=== PATIENT | female | born 1980 | race American Indian/Alaskan Native ===

== ENCOUNTER 2021-04-24 12:26 | Emergency (ER) | payer OTHER, SELFPAY ==
[2021-04-24] MEDS ORDERED: diphenhydrAMINE 50 MG/ML VIAL IM NR (14:00)
[2021-04-24] MEDS ORDERED: HALOPERIDOL LACTATE 5 MG/1 ML INJ IM NR (14:00)
[2021-04-24 14:04] LABS: Amphetamine Screen,Urine Negative; Bacteria,Urine 2+ /HPF (Negative); Benzodiazepines Screen,Urine Negative; Bilirubin,Urine NEG (Negative); Blood,Urine NEG (Negative); Cocaine Screen,Urine Negative; Color,Urine Straw (Yellow); Hyaline Casts,Urine 1 /LPF; Methadone Screen,Urine Negative; Mucus,Urine FEW /HPF; Opiate Screen,Urine Negative; Protein,Urine <15 mg/dL mg/dL (Negative); Urobilinogen,Urine < 2.0 mg/dL (<2.0)
--- NOTE | 2021-04-24 14:46 | Emergency Department Report ---
HPI - General Chief Complaint: Psych Time Seen by Provider: 04/24/21 13:05 - HPI HPI: 40-year-old female with history of bipolar disorder and schizophrenia as well as hypertension brought in by EMS after she told her family member that she wanted to kill her self. The patient states that "my mind is racing" she reports that she ran out of all of her medications 1 month ago. Since then she has been having blackouts and will regain awareness and finds herself naked in various places or doing other risky behaviors. She does not specify. She also reports "people are trying to hurt me". To me she denies suicidal ideation or homicidal ideation and says that she only told this to her family member earlier in anger. The patient reports that her LMP was 1 month ago. She denies any physical symptoms or complaints whatsoever. ED Past Medical Hx - Past Medical History Previous Medical History?: Yes Hx Psychiatric Treatment: Yes (Schizophrenia) - Medications Home Medications: Home Medications Medication Instructions Recorded Confirmed Last Taken Type QUEtiapine [SEROquel] 100 mg PO BID #60 tab 04/25/21 Unknown Rx Sertraline [Zoloft] 25 mg PO QDAY #30 tab 04/25/21 Unknown Rx cephALEXin [Keflex] 500 mg PO Q12HR #12 cap 04/25/21 Unknown Rx ED Review of Systems ROS: Stated complaint: SI/HI/DEPRESSION Other details as noted in HPI Constitutional: denies: chills, fever Eyes: denies: eye pain, vision change ENT: denies: throat pain, congestion Respiratory: denies: cough Cardiovascular: denies: chest pain, palpitations Gastrointestinal: denies: abdominal pain, nausea, vomiting Genitourinary: denies: dysuria, frequency Musculoskeletal: denies: back pain, joint swelling Skin: denies: rash Neurological: denies: headache, weakness, numbness Psychiatric: depression. denies: auditory hallucinations, visual hallucinations, homicidal thoughts, suicidal thoughts Physical Exam - Physical Exam Physical Exam: GENERAL: Well developed and well nourished. No acute distress HEENT: Normocephalic. No obvious signs of trauma. Moist mucous membranes. EYES: Extraocular movements are intact. Pupils are equal round and reactive to light bilaterally NECK: Supple. Trachea is midline. LUNGS: Nonlabored breathing. Equal chest rise bilaterally. Clear to auscultation bilaterally. HEART/CARDIOVASCULAR: Regular rate and rhythm. No murmurs or rubs. VASCULAR: Cap refill < 2 seconds ABDOMEN: Abdomen is soft and nondistended. There is no significant tenderness, guarding or rebound. SKIN: Skin is warm and dry NEURO: Patient is awake, alert, and oriented. embroiderer hand II-XII grossly intact. No focal deficits. Normal motor and sensory exam throughout. Normal speech. Normal gait. MUSCULOSKELETAL: No obvious deformities. No significant tenderness. Normal ROM throughout. . ED Medical Decision Making - Lab Data Result diagrams: 04/24/21 14:35 04/24/21 14:35 Lab Results 04/24/21 04/24/21 04/24/21 Range/Units 14:35 14:35 14:35 WBC 4.8 (4.5-11.0) K/mm3 RBC 4.36 (3.65-5.03) M/mm3 Hgb 13.7 (10.1-14.3) gm/dl Hct 41.3 (30.3-42.9) % MCV 95 (79-97) fl MCH 31 (28-32) pg MCHC 33 (30-34) % RDW 12.5 L (13.2-15.2) % Plt Count 229 (140-440) K/mm3 Lymph % (Auto) 45.8 H (13.4-35.0) % [place] % (Auto) 4.7 (0.0-7.3) % Eos % (Auto) 1.4 (0.0-4.3) % Baso % (Auto) 0.7 (0.0-1.8) % Lymph # (Auto) 2.2 (1.2-5.4) K/mm3 [place] # (Auto) 0.2 (0.0-0.8) K/mm3 Eos # (Auto) 0.1 (0.0-0.4) K/mm3 Baso # (Auto) 0.0 (0.0-0.1) K/mm3 Seg Neutrophils % 47.4 (40.0-70.0) % Seg Neutrophils # 2.3 (1.8-7.7) K/mm3 Sodium 136 L (137-145) mmol/L Potassium 4.2 (3.6-5.0) mmol/L Chloride 101.6 (98-107) mmol/L Carbon Dioxide 22 (22-30) mmol/L Anion Gap 17 mmol/L BUN 10 (7-17) mg/dL Creatinine 1.0 (0.6-1.2) mg/dL Estimated GFR > 60 ml/min BUN/Creatinine Ratio 10 % Glucose 100 (65-100) mg/dL Calcium 9.3 (8.4-10.2) mg/dL Total Bilirubin < 0.20 (0.1-1.2) mg/dL AST 17 (5-40) units/L ALT 10 (7-56) units/L Alkaline Phosphatase 51 (35-129) units/L Total Protein 6.8 (6.3-8.2) g/dL Albumin 4.6 (3.9-5) g/dL Albumin/Globulin Ratio 2.1 % HCG, Qual (Negative) Urine Color (Yellow) Urine Turbidity (Clear) Urine pH (5.0-7.0) Ur Specific [place] (1.003-1.030) Urine Protein (Negative) mg/dL Urine Glucose (UA) (Negative) mg/dL Urine Ketones (Negative) mg/dL Urine Blood (Negative) Urine Nitrite (Negative) Urine Bilirubin (Negative) Urine Urobilinogen (<2.0) mg/dL Ur Leukocyte Esterase (Negative) Urine WBC (Auto) (0.0-6.0) /HPF Urine RBC (Auto) (0.0-6.0) /HPF U Epithel Cells (Auto) (0-13.0) /HPF Urine Bacteria (Auto) (Negative) /HPF Hyaline Casts /LPF Urine Mucus /HPF Salicylates < 0.3 L (2.8-20.0) mg/dL Urine Opiates Screen Urine Methadone Screen Acetaminophen (10.0-30.0) ug/mL Ur Barbiturates Screen Ur Phencyclidine Scrn Ur Amphetamines Screen U Benzodiazepines Scrn Urine Cocaine Screen U Marijuana (THC) Screen Drugs of Abuse Note Plasma/Serum Alcohol (0-0.07) % 04/24/21 04/24/21 04/24/21 Range/Units 14:35 14:35 14:35 WBC (4.5-11.0) K/mm3 RBC (3.65-5.03) M/mm3 Hgb (10.1-14.3) gm/dl Hct (30.3-42.9) % MCV (79-97) fl MCH (28-32) pg MCHC (30-34) % RDW (13.2-15.2) % Plt Count (140-440) K/mm3 Lymph % (Auto) (13.4-35.0) % [place] % (Auto) (0.0-7.3) % Eos % (Auto) (0.0-4.3) % Baso % (Auto) (0.0-1.8) % Lymph # (Auto) (1.2-5.4) K/mm3 [place] # (Auto) (0.0-0.8) K/mm3 Eos # (Auto) (0.0-0.4) K/mm3 Baso # (Auto) (0.0-0.1) K/mm3 Seg Neutrophils % (40.0-70.0) % Seg Neutrophils # (1.8-7.7) K/mm3 Sodium (137-145) mmol/L Potassium (3.6-5.0) mmol/L Chloride (98-107) mmol/L Carbon Dioxide (22-30) mmol/L Anion Gap mmol/L BUN (7-17) mg/dL Creatinine (0.6-1.2) mg/dL Estimated GFR ml/min BUN/Creatinine Ratio % Glucose (65-100) mg/dL Calcium (8.4-10.2) mg/dL Total Bilirubin (0.1-1.2) mg/dL AST (5-40) units/L ALT (7-56) units/L Alkaline Phosphatase (35-129) units/L Total Protein (6.3-8.2) g/dL Albumin (3.9-5) g/dL Albumin/Globulin Ratio % HCG, Qual Negative (Negative) Urine Color (Yellow) Urine Turbidity (Clear) Urine pH (5.0-7.0) Ur Specific [place] (1.003-1.030) Urine Protein (Negative) mg/dL Urine Glucose (UA) (Negative) mg/dL Urine Ketones (Negative) mg/dL Urine Blood (Negative) Urine Nitrite (Negative) Urine Bilirubin (Negative) Urine Urobilinogen (<2.0) mg/dL Ur Leukocyte Esterase (Negative) Urine WBC (Auto) (0.0-6.0) /HPF Urine RBC (Auto) (0.0-6.0) /HPF U Epithel Cells (Auto) (0-13.0) /HPF Urine Bacteria (Auto) (Negative) /HPF Hyaline Casts /LPF Urine Mucus /HPF Salicylates (2.8-20.0) mg/dL Urine Opiates Screen Urine Methadone Screen Acetaminophen 5.0 L (10.0-30.0) ug/mL Ur Barbiturates Screen Ur Phencyclidine Scrn Ur Amphetamines Screen U Benzodiazepines Scrn Urine Cocaine Screen U Marijuana (THC) Screen Drugs of Abuse Note Plasma/Serum Alcohol < 0.01 (0-0.07) % 04/24/21 04/24/21 Range/Units Unknown Unknown WBC (4.5-11.0) K/mm3 RBC (3.65-5.03) M/mm3 Hgb (10.1-14.3) gm/dl Hct (30.3-42.9) % MCV (79-97) fl MCH (28-32) pg MCHC (30-34) % RDW (13.2-15.2) % Plt Count (140-440) K/mm3 Lymph % (Auto) (13.4-35.0) % [place] % (Auto) (0.0-7.3) % Eos % (Auto) (0.0-4.3) % Baso % (Auto) (0.0-1.8) % Lymph # (Auto) (1.2-5.4) K/mm3 [place] # (Auto) (0.0-0.8) K/mm3 Eos # (Auto) (0.0-0.4) K/mm3 Baso # (Auto) (0.0-0.1) K/mm3 Seg Neutrophils % (40.0-70.0) % Seg Neutrophils # (1.8-7.7) K/mm3 Sodium (137-145) mmol/L Potassium (3.6-5.0) mmol/L Chloride (98-107) mmol/L Carbon Dioxide (22-30) mmol/L Anion Gap mmol/L BUN (7-17) mg/dL Creatinine (0.6-1.2) mg/dL Estimated GFR ml/min BUN/Creatinine Ratio % Glucose (65-100) mg/dL Calcium (8.4-10.2) mg/dL Total Bilirubin (0.1-1.2) mg/dL AST (5-40) units/L ALT (7-56) units/L Alkaline Phosphatase (35-129) units/L Total Protein (6.3-8.2) g/dL Albumin (3.9-5) g/dL Albumin/Globulin Ratio % HCG, Qual (Negative) Urine Color Straw (Yellow) Urine Turbidity Clear (Clear) Urine pH 6.0 (5.0-7.0) Ur Specific [place] 1.006 (1.003-1.030) Urine Protein <15 mg/dl (Negative) mg/dL Urine Glucose (UA) Neg (Negative) mg/dL Urine Ketones Neg (Negative) mg/dL Urine Blood Neg (Negative) Urine Nitrite Neg (Negative) Urine Bilirubin Neg (Negative) Urine Urobilinogen < 2.0 (<2.0) mg/dL Ur Leukocyte Esterase Mod (Negative) Urine WBC (Auto) 24.0 H (0.0-6.0) /HPF Urine RBC (Auto) 3.0 (0.0-6.0) /HPF U Epithel Cells (Auto) 5.0 (0-13.0) /HPF Urine Bacteria (Auto) 2+ (Negative) /HPF Hyaline Casts 1 /LPF Urine Mucus Few /HPF Salicylates (2.8-20.0) mg/dL Urine Opiates Screen Negative Urine Methadone Screen Negative Acetaminophen (10.0-30.0) ug/mL Ur Barbiturates Screen Negative Ur Phencyclidine Scrn Negative Ur Amphetamines Screen Negative U Benzodiazepines Scrn Negative Urine Cocaine Screen Negative U Marijuana (THC) Screen Presumptive positive Drugs of Abuse Note Disclamer Plasma/Serum Alcohol (0-0.07) % - Medical Decision Making 40-year-old female with history of bipolar disorder and schizophrenia brought in by EMS after she threatened suicide to a family member. The patient states that she has been out of her medications for the past month and has been blacking out and regaining consciousness finding herself in bizarre situations including being naked. She also is paranoid and anxious that everybody is out to get her. She states that she feels her mind is racing. Given that the patient's presentation is consistent with acute matthias with psychosis, I feel that she is a danger to herself and is unlikely to be able to care for self. I have signed and initiated a 1013 order. Medical clearance labs have been sent. Labs have resulted and reveal no significant leukocytosis or anemia. Urinalysis shows signs of infection. I will prescribe Keflex 500 mg twice daily x5 days to treat her urinary tract infection. She is otherwise medically cleared for psychiatric evaluation and placement. The patient was seen by the mental health/psychiatry team who decided to discontinue her 1013. She was discharged home on 04/24/2021 with outpatient follow-up as well as treatment for her urinary tract infection. Critical care attestation.: If time is entered above; I have spent that time in minutes in the direct care of this critically ill patient, excluding procedure time. ED Disposition Clinical Impression: Suicidal ideation, UTI (urinary tract infection), Bipolar I disorder with matthias Disposition: DC- TO HOME OR SELFCARE Is pt being admited?: No Condition: Stable Instructions: Suicidal Feelings: How to Help Yourself Additional Instructions: Professional and Agency Contacts To help [facility] (02/05) [place] Crisis Line: Suicide Prevention Line: Crisis Text Line: Text START to 368185 Emergency: 911 Outpatient [facility] Behavioral Health Resources: [facility]: [facility] [address] [place], [place] [address] [facility] [address] [place] [address] Tuesday thru Tuesday - 8am - 5pm Call to schedule an assessment for mental health and substance abuse progr ams [facility] Address: [address] [place] [address] Tuesday thru Tuesday- 7am-2pm [facility] Address: [address] [place] [address] Tuesday thru Tuesday: 8:30AM-5PM Prescriptions: cephALEXin [Keflex] 500 mg PO Q12HR #12 cap QUEtiapine [SEROquel] 100 mg PO BID #60 tab Sertraline [Zoloft] 25 mg PO QDAY #30 tab Referrals: PRIMARY CARE, [Primary Care Provider] - 3-5 Days
[2021-04-24 14:49] LABS: Cannabinoid Screen,Urine PRESUMPTIVE POSITIVE
[2021-04-24 14:56] LABS: Basophils % (Auto) 0.7 % (0.0-1.8); Eosinophils # (Auto) 0.1 K/mm3 (0.0-0.4); Eosinophils % (Auto) 1.4 % (0.0-4.3); Hematocrit 41.3 % (30.3-42.9); Hemoglobin 13.7 gm/dl (10.1-14.3); Lymphocytes # (Auto) 2.2 K/mm3 (1.2-5.4); Lymphocytes % (Auto) 45.8 % (13.4-35.0); Mean Corpuscular HGB Conc 33 % (30-34); Mean Corpuscular Volume 95 fl (79-97); Monocytes # (Auto) 0.2 K/mm3 (0.0-0.8); Monocytes % (Auto) 4.7 % (0.0-7.3); Platelet Count 229 K/mm3 (140-440); Red Blood Count 4.36 M/mm3 (3.65-5.03); Red Cell Distribution Width 12.5 % (13.2-15.2)
[2021-04-24 16:18] LABS: Alanine Aminotransferase 10 units/L (7-56); Albumin 4.6 g/dL (3.9-5); BUN/Creatinine Ratio 10; Blood Urea Nitrogen 10 mg/dL (7-17); Calcium 9.3 mg/dL (8.4-10.2); Hemolysis Index 35
[2021-04-25 09:46] VITALS: BP 141/88
[2021-04-25] MEDS: cephALEXin 500 MG CAP PO SCH ×2 (10:23→11:33)
--- NOTE | 2021-04-25 10:42 | Event Note ---
Date: 04/25/21 S: No events reported overnight O: Vital Signs - 24 hr 04/24/21 04/24/21 04/25/21 15:24 20:22 09:45 Temperature 98.2 F 98.4 F 97.9 F Pulse Rate 68 61 79 Respiratory 18 18 18 Rate Blood Pressure 126/87 129/85 141/88 [Left] O2 Sat by Pulse 96 100 98 Oximetry A: Suicidal ideation, UTI P: 1013, awaiting psych placement. Continue Keflex for UTI
--- NOTE | 2021-04-25 11:22 | Consultation ---
History of Present Illness - Reason for Consult Consult date: 04/25/21 Reason for consult: SI - History of Present Psychiatric Illness Per ER Note: 40-year-old female with history of bipolar disorder and schizophrenia as well as hypertension brought in by EMS after she told her family member that she wanted to kill her self. The patient states that "my m ind is racing" she reports that she ran out of all of her medications 1 month ago. Since then she has been having blackouts and will regain awareness and finds herself naked in various places or doing other risky behaviors. She does not specify. She also reports "people are trying to hurt me". To me she denies suicidal ideation or homicidal ideation and says that she only told this to her family member earlier in anger. The patient reports that her LMP was 1 month ago. She denies any physical symptoms or complaints whatsoever. Alison Rubio is a 40y/o female patient who was brought to the hospital for suicidal thoughts. During my evaluation of the patient she is calm and cooperative. She is a/o x 3. The patient says her boyfriend told her she was 1013. The patient says "I really just need to get back on my medication." She says she's been off for about two months. She says "I'm not going to hurt myself. I don't know why I told my family that but I wouldn't do that." The patient says "I have two babies I want to get home to and see." She also says "I have a job, I can't afford to not be there." The patient says she was on seroquel 40mg and zoloft 50. She says "my mind start racing and that's when I start feeling like this. But I just need my meds." The patient continuously denies SI/HI. She says "no, I'm not and I never tried to hurt myself." She denies illicit drug use other than TCH. She also denies alcohol. PAST PSYCHIATRIC HISTORY Diagnoses: Bipolar, schizophrenia Suicide attempts or Self-harm behavior: Denies Prior psychiatric hospitalizations: Denies Substance Abuse history: THC Previous psychiatric medications tried: seroqeul, zoloft Outpatient treatment: No PAST MEDICAL HISTORY: None reported Family Psychiatric History: None reported or documented SOCIAL HISTORY Marital Status: single Living Arrangements: with friend Employment Status: employed Access to guns/weapons: Denies Education: high school History of Abuse: Denies Legal History: Denies REVIEW OF SYSTEMS Constitutional: Negative for weight loss ENT: Negative for stridor Respiratory: Negative for cough or hemoptysis All other systems reviewed and are negative MENTAL STATUS EXAMINATION General Appearance and Behavior: Age appropriate, good hygiene, wearing appropriate clothes, good eye contact, calm and cooperative Cooperation: Participating/engaged Psychomotor Behavior: Psychomotor normal Mood: "much better" Affect and affective range: Congruent with stated mood Thought Process: goal directed Thought Content: None Speech: normal tone and pace Suicidal Ideation: Denies Homicidal Ideation: Denies Hallucinations: Denies Delusions: None elicited Impulse Control: Limited Insight and Judgment: Limited insight and judgment Memory: Limited Attention: Attentive Orientation: Alert, oriented Assessment and Plan (1) Treatment Plan d/c 1013 Seroquel 100mg po BID Zoloft 25mg po daily First doses given prior to discharge Sitter: Per primary Medical: Per primary Disposition: Do not recommend acute psychiatric inpatient. The patient unders tands that if suicidal thoughts or any fear of endangerment arise he is to seek immediate assistance. Food Service Sales Representatives to further discuss and document safety plan The rag production worker to give the patient outpatient resources for med management, CBT and med assistance The patient to follow up with outpatient psych 7 to 14 days upon discharge Will sign off Case staffed with Dr. Morgan Medications and Allergies Allergies Allergy/AdvReac Type Severity Reaction Status Date / Time iodine Allergy Severe Anaphylaxis Verified 04/24/21 13:54 latex Allergy Anaphylaxis Verified 04/24/21 13:54 Home Medications Medication Instructions Recorded Confirmed Last Taken Type QUEtiapine [SEROquel] 100 mg PO BID #60 tab 04/25/21 Unknown Rx Sertraline [Zoloft] 25 mg PO QDAY #30 tab 04/25/21 Unknown Rx Active Meds: Active Medications Cephalexin (Cephalexin 500 Mg Cap) 500 mg PO BID [facility]; Protocol Stop: 04/29/21 19:59 Last Admin: 04/25/21 10:23 Dose: 500 mg Documented by: Mental Status Exam - Vital signs Last Vital Signs Temp 97.9 F 04/25/21 09:45 Pulse 79 04/25/21 09:45 Resp 18 04/25/21 09:45 BP 141/88 04/25/21 09:45 Pulse Ox 98 04/25/21 09:45 Results Result Diagrams: 04/24/21 14:35 04/24/21 14:35 Abnormal lab results 04/24/21 04/24/21 04/24/21 Range/Units 14:35 14:35 14:35 RDW 12.5 L (13.2-15.2) % Lymph % (Auto) 45.8 H (13.4-35.0) % Sodium 136 L (137-145) mmol/L Urine WBC (Auto) (0.0-6.0) /HPF Salicylates < 0.3 L (2.8-20.0) mg/dL Acetaminophen (10.0-30.0) ug/mL 04/24/21 04/24/21 Range/Units 14:35 Unknown RDW (13.2-15.2) % Lymph % (Auto) (13.4-35.0) % Sodium (137-145) mmol/L Urine WBC (Auto) 24.0 H (0.0-6.0) /HPF Salicylates (2.8-20.0) mg/dL Acetaminophen 5.0 L (10.0-30.0) ug/mL All other labs normal.
[2021-04-25] MEDS ORDERED: QUEtiapine 100 MG TAB PO SCH (12:00)
[2021-04-25] MEDS ORDERED: SERTRALINE 25 MG TAB PO ONE (12:00)
== END 2021-04-25 13:00 | disposition home or self-care (01) ==
LOC: ED 12:26
DX: F31.10 Bipolar disorder, current episode manic without psychotic features, unspecified (principal); N39.0 Urinary tract infection, site not specified; R45.851 Suicidal ideations; Z20.822 Contact with and (suspected) exposure to COVID-19; Z91.040 Latex allergy status; Z91.041 Radiographic dye allergy status
CPT/HCPCS: 36415; 80053; 80307; 81001; 84703; 85025; 87076; 87086; 87186; 99284; J1200; J1630; U0003; 80320; G0480